=== PATIENT | female | born 1980 | race Caucasian/White ===

== ENCOUNTER 2021-07-20 17:12 | Emergency (ER) | payer MEDICAID ==
[~2021-07-20] VITALS: Ht 167.6 cm; Wt 100.0 kg
[2021-07-20 17:25] VITALS: BP 148/87
== END 2021-07-20 18:40 | disposition left against medical advice (07) ==
LOC: ER 17:12
DX: Z53.21 Procedure and treatment not carried out due to patient leaving prior to being seen by health care provider (principal)

== ENCOUNTER 2021-09-30 18:22 | Emergency (ER) | payer MEDICAID ==
[~2021-09-30] VITALS: Ht 165.1 cm; Wt 125.0 kg
[2021-09-30 18:23] VITALS: BP 140/97
[2021-09-30] MEDS ORDERED: ALBU90AE INH (21:14)
== END 2021-09-30 21:18 | disposition home or self-care (01) ==
LOC: ER 18:27
DX: R05.9 Cough, unspecified (principal); F41.9 Anxiety disorder, unspecified; Z20.822 Contact with and (suspected) exposure to COVID-19; Z88.5 Allergy status to narcotic agent
CPT/HCPCS: 99283; C9803; U0003; U0005

== ENCOUNTER 2022-04-16 15:36 | Emergency (ER) | payer MEDICAID, OTHER ==
[~2022-04-16] VITALS: Ht 167.6 cm; Wt 121.0 kg
[~2022-04-16 15:36] MED LIST: ALBU90AE INH
[2022-04-16 15:51] VITALS: BP 119/79
== END 2022-04-17 04:08 | disposition left against medical advice (07) ==
LOC: ER 15:36
DX: Z53.21 Procedure and treatment not carried out due to patient leaving prior to being seen by health care provider (principal)